=== PATIENT | male | born 1950 | race Caucasian/White ===

== ENCOUNTER → 2024-01-08 12:27 | Outpatient (REF) | payer MEDICARE, OTHER, SELFPAY | LOC: HWRAD 12:27 | PROVIDERS: ATTENDING PHYSICIAN Internal Medicine Cardiovascular Disease; FAMILY PHYSICIAN Internal Medicine | DX: I47.29 Other ventricular tachycardia (principal); Z82.49 Family history of ischemic heart disease and other diseases of the circulatory system | CPT/HCPCS: 76770 ==

== ENCOUNTER → 2024-01-11 11:19 | Outpatient (REF) | payer MEDICARE, OTHER, SELFPAY | LOC: DHCBC/DCA 11:19 | PROVIDERS: ATTENDING PHYSICIAN Internal Medicine Cardiovascular Disease; FAMILY PHYSICIAN Internal Medicine | DX: I47.29 Other ventricular tachycardia (principal); I48.0 Paroxysmal atrial fibrillation | CPT/HCPCS: 78452; 93017; A9500; J2785 ==

== ENCOUNTER → 2024-01-28 13:38 | Outpatient (REF) | payer MEDICARE, OTHER, SELFPAY | LOC: RCS 13:38 | PROVIDERS: ATTENDING PHYSICIAN Internal Medicine Cardiovascular Disease; FAMILY PHYSICIAN Internal Medicine | DX: I47.29 Other ventricular tachycardia (principal) | CPT/HCPCS: 93306 ==

== ENCOUNTER → 2024-02-01 10:19 | Outpatient (REF) | payer MEDICARE, OTHER, SELFPAY ==
[2024-02-01 11:31] LABS: % Basophils 0.9 % (0-2); % Eosinophils 2.1 % (0-6); % Immature Granulocytes 0.7 % (0-0.5); % Lymphocytes 26.4 % (20.5-51.1); % Monocytes 11.6 % (1.7-9.3); % Neutrophils 58.3 % (42.2-75.2); Absolute Basophils 0.1 10^3/uL (0-0.2); Absolute Eosinophils 0.1 10^3/uL (0-0.7); Absolute Immature Granulocytes 0.1 10^3/uL (0-0.05); Absolute Lymphocytes 1.8 10^3/uL (1.2-3.4); Absolute Monocytes 0.8 10^3/uL (0.1-0.6); Absolute Neutrophils 3.9 10^3/uL (1.4-6.5); Hematocrit 40.8 % (39.0-52.0); Hemoglobin 14.6 g/dL (13.0-18.0); Mean Corp Hgb Conc. 35.8 g/dL (33.0-37.0); Mean Corpuscular Hgb 34.4 pg (27.0-31.0); Mean Platelet Volume 9.5 fL (7.4-10.4); Nucleated Red Blood Cells % 0 % (-); Platelet Count 189 10^3/uL (130-400); Red Blood Cell Count 4.25 10^6/uL (4.70-6.10); Red Cell Dist. Width 12.3 % (11.5-14.5); White Blood Cell Count 6.7 10^3/uL (4.8-10.8)
[2024-02-01 11:38] LABS: ALT (SGPT) 20 U/L (0-50); AST (SGOT) 28 U/L (17-59); Albumin 4.6 g/dl (3.5-5.0); Alkaline Phosphatase 118 U/L (38-126); Blood Urea Nitrogen 11 mg/dl (9-20); Calcium 9.6 mg/dl (8.4-10.2); Carbon Dioxide 30 mmol/L (22-30); Chloride 98 mmol/L (98-107); Glucose 75 mg/dl (70-99); Potassium 4.9 mmol/L (3.5-5.1); Sodium 135 mmol/L (135-145); Total Bilirubin 1.3 mg/dl (0.2-1.3); Total Protein 7.2 g/dl (6.3-8.2); eGFR > 60.00
== END ==
LOC: SDSPAT 10:19
PROVIDERS: ATTENDING PHYSICIAN Internal Medicine Cardiovascular Disease; FAMILY PHYSICIAN Internal Medicine; OTHER PHYSICIAN Internal Medicine Cardiovascular Disease
DX: Z01.818 Encounter for other preprocedural examination (principal); I27.20 Pulmonary hypertension, unspecified; R06.09 Other forms of dyspnea
CPT/HCPCS: 36415; 80053; 85025; 93005

== ENCOUNTER 2024-02-04 06:21 | Day surgery (SDC) | payer MEDICARE, OTHER, SELFPAY ==
[2024-02-01 11:01] VITALS: BMI 27.7
[2024-02-04] VITALS (11 sets, daily range): BP systolic 147–230; BP diastolic 91–132; BMI 27.7
[2024-02-04 06:55] LABS: Hemoglobin 14.9 g/dL (13.0-18.0); Mean Corp Hgb Conc. 36.3 g/dL (33.0-37.0); Mean Corpuscular Hgb 33.4 pg (27.0-31.0); Mean Corpuscular Volume 91.9 fL (80.0-94.0); Mean Platelet Volume 9.2 fL (7.4-10.4); Platelet Count 188 10^3/uL (130-400); Red Blood Cell Count 4.46 10^6/uL (4.70-6.10); Red Cell Dist. Width 12.2 % (11.5-14.5); White Blood Cell Count 6.1 10^3/uL (4.8-10.8)
[2024-02-04 07:07] LABS: Blood Urea Nitrogen 10 mg/dl (9-20); Calcium 9.8 mg/dl (8.4-10.2); Carbon Dioxide 28 mmol/L (22-30); Chloride 97 mmol/L (98-107); Estimated Creatinine Clearance 105 ml/min; Glucose 115 mg/dl (70-99); Potassium 4.4 mmol/L (3.5-5.1); Sodium 133 mmol/L (135-145); eGFR > 60.00
--- NOTE | 2024-02-04 08:29 | ITS.CL.CATH ---
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
Cardiac Catheterization
Procedure Report:
RIGHT HEART CATHETERIZATION
Date of Procedure: 02/04/2024
Referring: Bill Giraldo M.D.
INDICATION: Severe pulmonary hypertension.
ACCESS:
5 [place] antecubital fossa.
CATHETERS:
5 [place] balloon wedge.
PROCEDURE:
An IV was placed by the nursing staff in the right antecubital fossa. The patient was prepped and draped in standard sterile fashion, including copious cleansing of the IV and the IV site. The area around the IV was anesthetized with 1% lidocaine.
A 5 [place] sheath was inserted into the basilic vein. A 5 [place] balloon wedge catheter was advanced through the sheath into the superior vena cava. An SVC oxygen saturation was drawn. The balloon wedge catheter was advanced into the pulmonary
artery and a pulmonary artery oxygen saturation was drawn. Arterial oxygen saturation was assumed from pulse oximetry. Cardiac output was calculated using the Tiffany equation. The PA, wedge, RV and RA pressures were measured with advancement.
Intraprocedural calculation showed that the patient was suffering from moderate to severe pulmonary hypertension that was both pre and post capillary. The decision was made to proceed with provocative testing. Adenosine was started at 50
mcg/kg/min and uptitrated to a maximum of 180 mcg/kg/min. Serial measurements were obtained (PA, PCWP, noninvasive systemic blood pressure, PA oxygen saturation), showing no significant vasodilatory response and preservation of cardiac
output/cardiac index.
The 5 [place] balloon wedge catheter was withdrawn. The 5 [place] sheath was removed and manual pressure was held for hemostasis.
Weight (kg): 82.6
PA (s/d/x mmHg): 76/32/47
PCWP (a/v/x mmHg): 32/50/30
RV (s/x mmHg): 76/15
RA (a/v/x mmHg): 19/17/16
SVC SvO2 (%): 70.8
IVC SvO2 (%): Not obtained.
RA SvO2 (%): Not obtained.
RV SvO2 (%): Not obtained.
PA SvO2 (%): 71.8
SaO2 (%): 98.0 (assumed)
Hbg (g/dL): 14.8
Tiffany
CO (liters/minute): 4.16
CI (liters/minute/m2): 2.12
Thermodilution
CO (liters/minute): Not obtained
CI (liters/minute/m2): Not obtained.
TPG (mmHg): 17
PVR ([place] Units): 4.09
AVO2 Difference (Volume %): 5.27
ADENOSINE 50 MCG/KG/MIN
PA (s/d/x mmHg): 77/32/47
PCWP (a/v/x mmHg): 40/54/35
PA SvO2 (%): 71.4
SaO2 (%): 98.0 (assumed)
Hbg (g/dL): 14.8
Tiffany
CO (liters/minute): 4.11
CI (liters/minute/m2): 2.09
TPG (mmHg): 22
PVR ([place] Units): 5.35
AVO2 Difference (Volume %): 5.35
ADENOSINE 100 MCG/KG/MIN
PA (s/d/x mmHg): 73/30/44
PCWP (a/v/x mmHg): 40/54/35
PA SvO2 (%): 73.1
SaO2 (%): 98.0 (assumed)
Hbg (g/dL): 14.8
Tiffany
CO (liters/minute): 4.38
CI (liters/minute/m2): 2.23
TPG (mmHg): 9
PVR ([place] Units): 2.05
AVO2 Difference (Volume %): 5.01
ADENOSINE 150 MCG/KG/MIN
PA (s/d/x mmHg): 69/30/43
PCWP (a/v/x mmHg): 40/61/30
PA SvO2 (%): 74.8
SaO2 (%): 98.0 (assumed)
Hbg (g/dL): 14.8
Tiffany
CO (liters/minute): 4.68
CI (liters/minute/m2): 2.38
TPG (mmHg): 13
PVR ([place] Units): 2.78
AVO2 Difference (Volume %): 4.67
ADENOSINE 180 MCG/KG/MIN
PA (s/d/x mmHg): 72/31/44
PCWP (a/v/x mmHg): 41/67/39
PA SvO2 (%): 77.5
SaO2 (%): 98.0 (assumed)
Hbg (g/dL): 14.8
Tiffany
CO (liters/minute): 5.37
CI (liters/minute/m2): 2.73
TPG (mmHg): 15
PVR ([place] Units): 2.79
AVO2 Difference (Volume %): 4.12
Radiation (mGy): 27.72
DAP (cm2.Gy): 4.9581
Fluoroscopy time (minutes): 2.8
CONCLUSION:
1. 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
2. No evidence of pulmonary vasoreactivity on provocative testing.
3. Preserved cardiac output and index (4.16 L/min, 2.12 L/min/m�).
RECOMMENDATIONS:
1. Expectant management after right heart catheterization via right antecubital approach.
2. Furosemide 40 mg IV x 1.
3. Start furosemide 40 mg p.o. daily.
4. BMP in 1 week to monitor renal response and potassium.
5. Stable for outpatient evaluation of severe pulmonary hypertension (possible VQ scan, high-resolution CT, rheumatic workup).
Copy to: Bill Giraldo M.D., Ana Tejada M.D.
Griffin Griffin D.O., FACC, FACP
[2024-02-04] MEDS: LASIX 40 MG IV (08:59)
== END 2024-02-04 10:45 | disposition home or self-care (01) ==
LOC: CATH 06:21
PROVIDERS: ATTENDING PHYSICIAN Internal Medicine Cardiovascular Disease; FAMILY PHYSICIAN Internal Medicine; OTHER PHYSICIAN Internal Medicine Cardiovascular Disease
DX: I25.10 Atherosclerotic heart disease of native coronary artery without angina pectoris (principal); I27.20 Pulmonary hypertension, unspecified; I49.5 Sick sinus syndrome; I47.20 Ventricular tachycardia, unspecified; I48.0 Paroxysmal atrial fibrillation; I10 Essential (primary) hypertension; E78.5 Hyperlipidemia, unspecified; K21.9 Gastro-esophageal reflux disease without esophagitis; I71.20 Thoracic aortic aneurysm, without rupture, unspecified; Z95.5 Presence of coronary angioplasty implant and graft; Z95.810 Presence of automatic (implantable) cardiac defibrillator; Z85.820 Personal history of malignant melanoma of skin; Z86.74 Personal history of sudden cardiac arrest; Z82.49 Family history of ischemic heart disease and other diseases of the circulatory system; Z79.82 Long term (current) use of aspirin; Z79.01 Long term (current) use of anticoagulants
CPT/HCPCS: 80048; 85027; 93005; 93451; C1894; J0153

== ENCOUNTER → 2024-02-13 14:35 | Outpatient (REF) | payer MEDICARE, OTHER, SELFPAY ==
[2024-02-13 15:55] LABS: Blood Urea Nitrogen 15 mg/dl (9-20); Calcium 9.9 mg/dl (8.4-10.2); Carbon Dioxide 31 mmol/L (22-30); Chloride 93 mmol/L (98-107); Glucose 105 mg/dl (70-99); Potassium 4.2 mmol/L (3.5-5.1); Sodium 133 mmol/L (135-145); eGFR > 60.00
== END ==
LOC: REG 14:35
PROVIDERS: ATTENDING PHYSICIAN Internal Medicine Cardiovascular Disease; FAMILY PHYSICIAN Internal Medicine; REFERRING PHYSICIAN Internal Medicine Cardiovascular Disease
DX: I27.23 Pulmonary hypertension due to lung diseases and hypoxia (principal)
CPT/HCPCS: 36415; 80048

== ENCOUNTER → 2024-02-25 15:27 | Outpatient (REF) | payer MEDICARE, OTHER, SELFPAY | LOC: HWRAD 15:27 | PROVIDERS: ATTENDING PHYSICIAN Nurse Practitioner | DX: M79.632 Pain in left forearm (principal) | CPT/HCPCS: 76882 ==

== ENCOUNTER → 2024-02-27 12:55 | Outpatient (REF) | payer MEDICARE, OTHER, SELFPAY | LOC: RAD 12:55 | PROVIDERS: ATTENDING PHYSICIAN Nurse Practitioner Gerontology; FAMILY PHYSICIAN Internal Medicine | DX: I27.20 Pulmonary hypertension, unspecified (principal) | CPT/HCPCS: 71046; 78582; A9540; A9567 ==

== ENCOUNTER → 2024-02-29 14:41 | Outpatient (REF) | payer MEDICARE, OTHER, SELFPAY | LOC: HWRAD 14:41 | PROVIDERS: ATTENDING PHYSICIAN Nurse Practitioner | DX: M79.632 Pain in left forearm (principal) | CPT/HCPCS: 73090 ==

== ENCOUNTER → 2024-03-26 14:31 | Outpatient (REF) | payer MEDICARE, OTHER, SELFPAY ==
[2024-03-26 15:11] LABS: Osmolality Urine 228 mOsm/kg (300-900)
[2024-03-26 15:22] LABS: Blood Urea Nitrogen 12 mg/dl (9-20); Calcium 9.9 mg/dl (8.4-10.2); Carbon Dioxide 31 mmol/L (22-30); Chloride 93 mmol/L (98-107); Glucose 116 mg/dl (70-99); Potassium 4.7 mmol/L (3.5-5.1); Sodium 138 mmol/L (135-145); eGFR > 60.00
[2024-03-26 15:32] LABS: Urine Sodium 50 mmol/L (30-90)
== END ==
LOC: REG 14:31
PROVIDERS: ATTENDING PHYSICIAN Internal Medicine Cardiovascular Disease; FAMILY PHYSICIAN Internal Medicine; REFERRING PHYSICIAN Specialist
DX: I10 Essential (primary) hypertension (principal)
CPT/HCPCS: 36415; 80048; 82088; 82384; 82570; 83835; 83935; 84244; 84300

== ENCOUNTER → 2024-05-13 08:03 | Outpatient (REF) | payer MEDICARE, OTHER, SELFPAY | LOC: RAD 08:03 | PROVIDERS: ATTENDING PHYSICIAN Specialist; FAMILY PHYSICIAN Internal Medicine | DX: I10 Essential (primary) hypertension (principal) | CPT/HCPCS: 93975 ==

== ENCOUNTER → 2024-11-28 06:12 | Outpatient (REF) | payer MEDICARE, OTHER, SELFPAY ==
[2024-11-28 09:56] LABS: Hematocrit 41.2 % (39.0-52.0); Hemoglobin 14.7 g/dL (13.0-18.0); Mean Corp Hgb Conc. 35.7 g/dL (33.0-37.0); Mean Corpuscular Hgb 33.5 pg (27.0-31.0); Mean Corpuscular Volume 93.8 fL (80.0-94.0); Mean Platelet Volume 9.9 fL (7.4-10.4); Platelet Count 178 10^3/uL (130-400); Red Blood Cell Count 4.39 10^6/uL (4.70-6.10); Red Cell Dist. Width 12.1 % (11.5-14.5); White Blood Cell Count 6.2 10^3/uL (4.8-10.8)
[2024-11-28 10:34] LABS: Blood Urea Nitrogen 13 mg/dl (9-20); Calcium 9.5 mg/dl (8.4-10.2); Carbon Dioxide 32 mmol/L (22-30); Chloride 100 mmol/L (98-107); Glucose 133 mg/dl (70-99); Potassium 4.6 mmol/L (3.5-5.1); Sodium 141 mmol/L (135-145); eGFR > 60.00
== END ==
LOC: HWLAB 06:12
PROVIDERS: ATTENDING PHYSICIAN Internal Medicine Cardiovascular Disease; FAMILY PHYSICIAN Internal Medicine
DX: I27.20 Pulmonary hypertension, unspecified (principal); I47.20 Ventricular tachycardia, unspecified
CPT/HCPCS: 36415; 80048; 85027

== ENCOUNTER → 2025-06-05 08:10 | Outpatient (REF) | payer MEDICARE, OTHER, SELFPAY ==
[2025-06-05 11:50] LABS: Blood Urea Nitrogen 12 mg/dl (9-20); Calcium 10.1 mg/dl (8.4-10.2); Chloride 96 mmol/L (98-107); Glucose 129 mg/dl (70-99); HDL Cholesterol 57 mg/dl; LDL Cholesterol, Calculated 81 mg/dl; Potassium 4.5 mmol/L (3.5-5.1); Sodium 138 mmol/L (135-145); Very Low Density Lipoprotein 15 mg/dl (0-30); eGFR > 60.00
[2025-06-05 12:03] LABS: Carbon Dioxide 33 mmol/L (22-30)
== END ==
LOC: HWRCS 08:10
PROVIDERS: ATTENDING PHYSICIAN Internal Medicine Cardiovascular Disease; FAMILY PHYSICIAN Internal Medicine
DX: I27.20 Pulmonary hypertension, unspecified (principal); I25.10 Atherosclerotic heart disease of native coronary artery without angina pectoris; I47.29 Other ventricular tachycardia
CPT/HCPCS: 36415; 80048; 80061; 93306